=== PATIENT | male | born 1945 | race Caucasian/White ===

== ENCOUNTER 2016-08-22 10:53 | Emergency (ER) | payer MEDICARE, OTHER, SELFPAY ==
[2016-08-22 12:56] LABS: HEMOGLOBIN 18.1 gm/dl (14.0-17.5); RED BLOOD COUNT 5.28 M/UL (4.20-5.50)
== END 2016-08-22 14:50 | disposition home or self-care (01) ==
LOC: ER1 10:53
PROVIDERS: Nurse Practitioner Family
DX: H11.32 Conjunctival hemorrhage, left eye (principal); D72.829 Elevated white blood cell count, unspecified; I10 Essential (primary) hypertension; F17.210 Nicotine dependence, cigarettes, uncomplicated
CPT/HCPCS: 36415; 85025; 85610; 85730; 99283